=== PATIENT | female | born 2000 | race Caucasian/White ===

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

== ENCOUNTER 2022-12-31 12:15 | Emergency (ER) | payer BC ==
[~2022-12-31] VITALS: Ht 160 cm; Wt 54.3 kg
[2022-12-31 13:35] VITALS: BP 123/88; PULSE 108; RESP 12; TEMP 97.2; O2SAT 97
[2022-12-31] MEDS ORDERED: INSU100I4 SC (13:35)
== END 2022-12-31 13:36 | disposition home or self-care (01) ==
LOC: ER 12:15
DX: E11.9 Type 2 diabetes mellitus without complications (principal); Z76.0 Encounter for issue of repeat prescription
CPT/HCPCS: 82962